=== PATIENT | female | born 1950 | race Caucasian/White ===

== ENCOUNTER 2024-11-23 01:45 | Outpatient (CLI) | payer MEDICARE, OTHER, SELFPAY ==
--- NOTE | 2024-11-23 07:15 | DI.US_ITS ---
Exam(s) US NEEDLE LOCAL OTHER WO RAD EXAM: Right thyroid nodule,ULTRASOUND GUIDED BX,E04.1,HYPOTHYROIDISM COMPARISON: No exams were available for comparison TECHNIQUE: Ultrasound performed using standard protocol. FINDINGS: Sonography was provided for Dr. Philippe during the performance of a right thyroid nodule biopsy.. Please refer to the procedure report for complete details. DATA REPOSITORY:
--- NOTE | 2024-11-23 11:15 | PAPNONF_PTH ---
PATIENT: Doris Antonio LOC: [facility] U#:[id number] AGE/SX: 74/F ROOM: RE11/23/[address]: Harman Philippe MD : 1950 BED: DIS: 11/23/2024 SPEC #: [id number] RECD: 11/23/24 12:54 STATUS: RHIANNA REQ #: [id number] MODE: 11/23/24 11:[address]: Harman Philippe DEPT: [facility] Cytology RECD BY: Tabitha Rojas ENTERED: 11/23/24 12:56 SP TYPE: LEATHA LINDSEY DR: Breanna Xie Tissues: 1 - BODY FLUID CYTO-FINE NEEDLE [facility] Procedures: BODY FLUID CYTO-FINE NEEDLE [facility] Comments: [id number] (PATH FNA CONSULT) (REFRIGERATED)
--- NOTE | 2024-11-23 12:51 | W.PROCNOTE ---
Date of service: 11/23/24 Time of Service: 12:51 Procedure Note Date of procedure: 11/23/24 Procedure: Ultrasound-guided FNA, right thyroid nodule, pathology present Procedure Diagnosis: Right thyroid nodule meeting criteria for biopsy Procedure Indications: The patient has a right sided solid thyroid nodule meeting criteria for biopsy. Options were explained to the patient regarding further management. She wished to proceed with FNA. Risks including bleeding, infection, need for further treatment and nonanswer were discussed at length with the patient. Written consent was obtained. The below was then performed. Procedure Description: The patient was positioned in a supine position with her neck slightly extended and prepped and draped in appropriate fashion. Ultrasound was used to localize the appropriate thyroid nodule in the right and then 1% lidocaine with 1/100,000 epinephrine was injected into the skin and subcutaneous tissues overlying the nodule. A 25-gauge needle was passed into the thyroid nodule. 3 passes were necessary to hit cellular adequacy. Once cellular adequacy had been verified by pathology, 2 additional passes were made for potential Afirma testing. After ensuring adequate hemostasis, sterile dressing was applied and the patient was allowed to sit, stand, and then ambulate. Her vital signs remained stable. She will remove the bandage in a couple of hours and not replace it. She will call with any signs of infection. She may use Tylenol for any discomfort. She will call if she does not hear from me within 1 week with regard to pathology results. She had no further questions. She is comfortable with this plan.
== END 2024-11-23 02:05 ==
LOC: DI 01:45
PROVIDERS: PCP Internal Medicine; Visit Provider Otolaryngology
DX: E04.1 Nontoxic single thyroid nodule (principal); E03.9 Hypothyroidism, unspecified
CPT/HCPCS: 10005; 76942; 88104